=== PATIENT | male | born 2000 | race Caucasian/White ===

== ENCOUNTER 2024-12-17 16:03 | Emergency (ER) | payer OTHER, SELFPAY ==
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
--- OUTSIDE RECORDS SUMMARY | 2024-12-17 16:06 | XMS_ITS | Clinical Summary ---
Author Organization [facility] Address [address] [place] [address] Care Team Providers Care Accounting Reconciliation Clerk Name Role Phone Sarah Payne MD Unavailable Alivia Krishnan MD Primary Care Provider [phone] Source Comments [facility],non-owned Affiliates and Associated Physician Practices is amultiple site organization consisting of ambulatory clinics and hospital sitesin [place], [place], [place] and [place]. This disclosure is being madepursuant to the Care Everywhere program and may not contain all information available regarding this patient. Last updated 18.[facility] Allergies No known active allergies Medications * Be aware that medications may not be up to date on this document. Alwaysverify current medications with the patient. No known medications Active Problems Problem Noted Date Diagnosed Date BMI (body mass index), pedia tric, 85% to less than 95% for age 0905/11/2016 Hypercholesteremia 04/03/2010 Elevated blood pressure 04/03/2010 Resolved Problems Problem Noted Date Diagnosed Date Resolved Date BMI (body mass index), pedia tric, 95-99% for age 0804/03/2010 05/11/2016 Immunizations Immunization Administration Dates Next Due DTaP VACCINE IM (6wk-6yrs) 03/04/2004,,1999,07/02,1999 HEP A PEDS 2 DOSE 06/04/2009,03/16/2008 HEP B VACCINE, PED/ADOL 1999,1999, HIB BOOSTER 05/24/2001, 0,1999,03/26 Human Papilloma Virus Nineva lent Vaccine 05/11/2016 Human Papilloma Virus Marco valent Vaccine 04/07/2013,04/01/2010 INFLUENZA A [id number] VACCINE 07/10/2009 Influenza Nasal 06/17/2010 MENINGOCOCCAL ACWY (MCV4P) VAC IM 05/11/2016, MMR 03/04/2004,01/26/2000 PNEUMOCOCCAL CONJ, PEDS 05/03/2000,01/26/2000 POLIO IPV 03/04/2004, 0,1999,03/26 PPD 03/04/2004,01/26/2000 TDAP (7yrs+) 06/04/2009 VARICELLA 03/16/2008,05/03/2000 Social History Tobacco Use Types Packs/Day Years Used Date Smoking Tobacco: Never Smokeless Tobacco: Never Alcohol Use Standard Drinks/Week Comments No 0 (1 standard drink = 0.6 oz pur e alcohol) Sex and Gender Information Value Date Recorded Sex Assigned at Not on file 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 Gender Identity Not on file Sexual Orientation Not on file Last Filed Vital Signs Vital Sign Reading Time Taken Comments Blood Pressure 146/72 05/11/2016 3:44 PM CDT after exam and vaccines Pulse 80 05/11/2016 3:14 PM CDT Temperature 36.4 C (97.5 F) 07/19/2013 9:58 AM TOOL AND DIE MAKER APPRENTICE Respiratory Rate - - Oxygen Saturation - - Inhaled Oxygen Concentration - - Weight 76.6 kg (168 lb 12.8 oz) 05/11/2016 3:14 PM CDT Height 167.6 cm (5' 6 ) 05/11/2016 3:14 PM CDT Body Mass Index 27.25 05/11/2016 3:14 PM CDT Plan of Treatment Health Maintenance Due Date Last Done Comments HIV SCREENING 2014 HEPATITIS C SCREENING 01/16/2017 DTAP/TDAP/TD VACCINES (7 - Td or Tdap) 06/04/2019 06/04/2009, 03/04/2004, 05/24/2001, Additional history exists COVID-19 VACCINE ( - 2023- season) 2024 DEPRESSION SCREENING 08/16/2024 INFLUENZA VACCINE (Season Ended) 2025 06/17/2010, 07/10/2009 ZOSTER VACCINE (1 of 2) 2049 HEPATITIS B VACCINE Completed 1999, 1999, 1999 PNEUMOCOCCAL VACCINE Completed 05/03/2000, 01/26/20 HIB VACCINE Completed 05/24/2001, 08/16, 1999, Additional history exists HPV VACCINE Completed 05/11/2016, 03/17, 04/01/2010 MENINGOCOCCAL GROUPS A/C/Y/W VACCINE Completed 05/11/2016, 04/01/2010 MENINGOCOCCAL (Group B) VACCINE SHARED DECISION-MAKING Aged Out No longer eligible based on patient's age to complete this topic Goals Goal Patient Goal Type Associated Problems Recent Progress Patient-Stated? Author Exercise 3X per week (30 min per time) Exercise No Alivia Krishnan MD Note: Caring for Your Overweight Child Get Moving: It is recommended that children and teens get physical activity for at least 1 hour per day on most (or better yet, all) days of the week. That may sound like a lot, especially if your child is not getting any physical activity now. But physical activity means more than exercise. It can mean playing games in the backyard, or washing the car. It can mean picking up leaves, or walking the dog. Add the healthy habit of physical activity to your family s schedule. When children take off weight through dieting alone, 80 percent of the loss is from fatty tissue and 20 percent is from muscle. Adding weight-resistance training to an exercise routine preserves the muscle tissue. Virtually every ounce dropped comes from fat. Once an adolescent meets his goal, regular exercise is essential for maintaining the desired weight. Where can I go for more information? [employer] ( ) www.aap.org HealthyChildren.org www.healthychildren.org U.S. Department of Health and Human Services www.hhs.gov Website and free downloadable soo for smartphones: http://www.Corebook/ Use safety retraint in car Lifestyle On track( 016 3:18 PM CDT) No Daly Barraza RN Insurance MEDICAID [facility] [employer] PLAN Care Teams Accounting Reconciliation Clerk Relationship Specialty Start Date End Date Sarah Payne MD PCP - Pediatrics 07/09/09 Alivia Krishnan MD PCP - General 05/02/10
--- OUTSIDE RECORDS SUMMARY | 2024-12-17 16:55 | XMS_ITS | Clinical Summary ---
Author Organization [facility] Address [address] [place] [address] Care Team Providers Care Cigarette Machine Filler Name Role Phone Sarah Payne MD Unavailable Alivia Krishnan MD Primary Care Provider [phone] Source Comments [facility],non-owned Affiliates and Associated Physician Practices is amultiple site organization consisting of ambulatory clinics and hospital sitesin [place], [place], [place] and [place]. This disclosure is being madepursuant to the Care Everywhere program and may not contain all information available regarding this patient. 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 [employer] ( ) www.aap.org HealthyChildren.org www.healthychildren.org U.S. Department of Health and Human Services www.hhs.gov Website and free downloadable soo for smartphones: http://www.Valchemy/ Use safety retraint in car Lifestyle On track( 016 3:18 PM CDT) No Daly Barraza RN Insurance MEDICAID [facility] [employer] PLAN Care Teams Cigarette Machine Filler Relationship Specialty Start Date End Date Sarah Payne MD PCP - Pediatrics 07/09/09 Alivia rKishnan MD PCP - General 05/02/10
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
[2024-12-17 21:37] VITALS: BP 175/87; PULSE 106; TEMP 36.3; O2SAT 99
== END 2024-12-17 19:55 | disposition home or self-care (01) ==
PROVIDERS: Emergency Provider Physician Assistant
DX: S30.1XXA Contusion of abdominal wall, initial encounter (principal); V48.0XXA Car driver injured in noncollision transport accident in nontraffic accident, initial encounter
CPT/HCPCS: 70450; 71260; 72125; 73030; 74177; 99284; Q9967